=== PATIENT | female | born 1960 | race Caucasian/White ===

== ENCOUNTER 2017-08-29 14:26 | Emergency (ER) | payer OTHER ==
[~2017-08-29] VITALS: Ht 160 cm; Wt 77.3 kg
[~2017-08-29 14:26] MED LIST: CARV3.1262 PO; GLIM1TAB2 PO; LISI1TAB11 PO; METF500T6 PO; MORP30 PO; RANI-248 PO
[2017-08-29 14:49] LABS: GLUCOSE,POINT OF CARE 207 MG/DL (70-110)
[2017-08-29] MEDS ORDERED: KETOROLAC TROMETHAMINE 60 MG/2 ML VIAL IM ONE (15:30)
[2017-08-29 16:15] VITALS: BP 137/84
== END 2017-08-29 16:29 | disposition home or self-care (01) ==
LOC: EMS 14:27
DX: M19.90 Unspecified osteoarthritis, unspecified site (principal); M25.561 Pain in right knee; M25.562 Pain in left knee; M79.89 Other specified soft tissue disorders; G89.29 Other chronic pain; J45.909 Unspecified asthma, uncomplicated; E11.9 Type 2 diabetes mellitus without complications; I10 Essential (primary) hypertension; Z96.651 Presence of right artificial knee joint; Z88.1 Allergy status to other antibiotic agents
CPT/HCPCS: 73562 ×2; 82962; 96372; 99284; J1885

== ENCOUNTER 2017-10-05 17:51 | Emergency (ER) | payer OTHER ==
[~2017-10-05] VITALS: Ht 160 cm; Wt 78.2 kg
[~2017-10-05 17:51] MED LIST changes: -CARV3.1262 PO; -MORP30 PO
[2017-10-05] MEDS ORDERED: ALBU8.5H8 IH (18:06)
[2017-10-05] MEDS ORDERED: PRED15SO PO (18:06)
[2017-10-05] MEDS ORDERED: MONT10TA21 PO (18:06)
[2017-10-05 18:09] LABS: GLUCOSE,POINT OF CARE 390 MG/DL (70-110)
[2017-10-05] MEDS ORDERED: SODIUM CHLORIDE 0.9% 1,000 ML IV ONE (20:15)
[2017-10-05 20:46] LABS: ANION GAP 11 mmol/L (8-16); CALCIUM, TOTAL 9.5 mg/dL (8.8-10.5); CARBON DIOXIDE 27 mmol/L (22-29); CHLORIDE 97 mmol/L (98-107); CREATININE 0.79 mg/dL (0.60-1.30); GLOMERULAR FILTR. RATE CALC > 60 mL/min (>60); GLUCOSE,RANDOM 299 mg/dL (70-110); POTASSIUM 3.8 mmol/L (3.5-5.1); SODIUM SERUM 135 mmol/L (136-145); UREA NITROGEN, BLOOD 11 mg/dL (7-18)
[2017-10-05 21:18] LABS: GLUCOSE,POINT OF CARE 235 MG/DL (70-110)
[2017-10-05 21:37] VITALS: BP 124/71
== END 2017-10-05 22:01 | disposition home or self-care (01) ==
LOC: EMS 17:52
DX: E11.65 Type 2 diabetes mellitus with hyperglycemia (principal); J45.901 Unspecified asthma with (acute) exacerbation; T38.3X5A Adverse effect of insulin and oral hypoglycemic [antidiabetic] drugs, initial encounter; M19.90 Unspecified osteoarthritis, unspecified site; I10 Essential (primary) hypertension; Z96.659 Presence of unspecified artificial knee joint; Z88.1 Allergy status to other antibiotic agents; Z79.84 Long term (current) use of oral hypoglycemic drugs; Z79.899 Other long term (current) drug therapy; Y92.89 Other specified places as the place of occurrence of the external cause
CPT/HCPCS: 36415; 80048; 82962; 96360; 99284; J7030

== ENCOUNTER 2017-11-03 15:24 | Emergency (ER) | payer OTHER ==
[~2017-11-03] VITALS: Ht 160 cm; Wt 80.0 kg
[~2017-11-03 15:24] MED LIST changes: +ALBU8.5H8 IH; +METF-960 PO; -METF500T6 PO; +MONT10TA21 PO; +PRED15SO PO
[2017-11-03] MEDS ORDERED: KETOROLAC TROMETHAMINE 60 MG/2 ML VIAL IM ONE (17:30)
[2017-11-03 18:24] LABS: BASOPHILS % (AUTO) 0.7 % (0.0-2.0); EOSINOPHILS % (AUTO) 2.5 % (1.0-6.0); HEMATOCRIT 26.3 % (36-46); HEMOGLOBIN 8.7 g/dL (12.0-16.0); LYMPHOCYTES % (AUTO) 28.1 % (22.0-44.0); MEAN CORPUSCULAR HGB CONC 32.9 G/dL (31.0-37.0); MEAN CORPUSCULAR VOLUME 70 fL (80-100); MONOCYTES # (AUTO) 0.6 K/uL (0.1-1.0); MONOCYTES % (AUTO) 8.5 % (2.0-9.0); NEUTROPHILS # (AUTO) 4.3 K/uL (1.8-7.7); NEUTROPHILS % (AUTO) 60.2 % (40.0-70.0); PLATELET COUNT (AUTO) 279 K/uL (150-450); RED BLOOD CELL COUNT(AUTO) 3.76 MIL/uL (4.00-5.20); RED CELL DISTRIBUTION WIDTH 15.7 % (11.5-14.5)
[2017-11-03 18:26] VITALS: BP 125/75
[2017-11-03 18:37] LABS: ANION GAP 8 mmol/L (8-16); CALCIUM, TOTAL 8.4 mg/dL (8.8-10.5); CARBON DIOXIDE 29 mmol/L (22-29); CHLORIDE 104 mmol/L (98-107); CREATININE 0.59 mg/dL (0.60-1.30); GLOMERULAR FILTR. RATE CALC > 60 mL/min (>60); GLUCOSE,RANDOM 105 mg/dL (70-110); POTASSIUM 3.4 mmol/L (3.5-5.1); SODIUM SERUM 141 mmol/L (136-145); UREA NITROGEN, BLOOD 6 mg/dL (7-18)
[2017-11-03 18:42] LABS: ALANINE AMINOTRANSFERASE 24 U/L (12-78); ALBUMIN 3.4 g/dL (3.4-5.0); ALKALINE PHOSPHATASE 83 U/L (46-116); ASPARTATE AMINOTRANSFERASE 16 U/L (15-37); BILIRUBIN,TOTAL 0.3 mg/dL (0.1-1.0); TOTAL PROTEIN, SERUM 6.8 g/dL (6.4-8.2)
[2017-11-03] MEDS ORDERED: POTASSIUM CHLORIDE 20 MEQ ER TABLET PO ONE (19:15)
== END 2017-11-03 19:24 | disposition home or self-care (01) ==
LOC: EMS 15:26
DX: M25.561 Pain in right knee (principal); J45.909 Unspecified asthma, uncomplicated; E11.9 Type 2 diabetes mellitus without complications; I10 Essential (primary) hypertension; G47.00 Insomnia, unspecified; F43.10 Post-traumatic stress disorder, unspecified; Z96.651 Presence of right artificial knee joint; Z88.1 Allergy status to other antibiotic agents; Z79.84 Long term (current) use of oral hypoglycemic drugs; Z79.899 Other long term (current) drug therapy
CPT/HCPCS: 29505; 36415; 73562; 80053; 82948; 85025; 96372; 99285; J1885

== ENCOUNTER 2019-02-11 09:45 | Emergency (ER) | payer OTHER ==
[~2019-02-11] VITALS: Ht 157.5 cm; Wt 63.6 kg
[~2019-02-11 09:45] MED LIST changes: -GLIM1TAB2 PO; +GLIM1TAB3 PO; -PRED15SO PO; +PRED15SO57 PO; -RANI-248 PO; +RANI-662 PO
[2019-02-11] MEDS ORDERED: DULA0.75 SQ (09:57)
[2019-02-11 10:01] LABS: GLUCOSE,POINT OF CARE 206 MG/DL (70-110)
[2019-02-11] MEDS ORDERED: LISI-658 PO (11:55)
[2019-02-11] MEDS ORDERED: CYCLOBENZAPRINE HCL 10 MG TABLET PO ONE (12:00)
[2019-02-11] MEDS ORDERED: KETOROLAC TROMETHAMINE 30 MG/ML VIAL IM ONE (12:00)
[2019-02-11 13:04] VITALS: BP 139/89
[2019-02-11 13:19] LABS: GLUCOSE,POINT OF CARE 89 MG/DL (70-110)
== END 2019-02-11 13:39 | disposition home or self-care (01) ==
LOC: EMS 09:49
DX: S20.211A Contusion of right front wall of thorax, initial encounter (principal); S30.1XXA Contusion of abdominal wall, initial encounter; M25.551 Pain in right hip; M54.2 Cervicalgia; M79.601 Pain in right arm; E11.9 Type 2 diabetes mellitus without complications; G47.00 Insomnia, unspecified; I10 Essential (primary) hypertension; J45.909 Unspecified asthma, uncomplicated; M19.90 Unspecified osteoarthritis, unspecified site; Z96.651 Presence of right artificial knee joint; Z79.899 Other long term (current) drug therapy; Z88.1 Allergy status to other antibiotic agents; W18.39XA Other fall on same level, initial encounter; Y93.02 Activity, running; Y92.89 Other specified places as the place of occurrence of the external cause; Y99.8 Other external cause status
CPT/HCPCS: 71101; 82962; 96372; 99283; J1885

== ENCOUNTER 2019-12-08 12:13 | Emergency (ER) | payer OTHER ==
[~2019-12-08] VITALS: Ht 160 cm; Wt 77.7 kg
[~2019-12-08 12:13] MED LIST changes: +DULA0.75 SQ; -GLIM1TAB3 PO; +LISI-658 PO; -LISI1TAB11 PO; +MONT-35 PO; -MONT10TA21 PO; -PRED15SO57 PO
[2019-12-08] MEDS ORDERED: KETOROLAC TROMETHAMINE 30 MG/ML VIAL IM ONE (13:00)
[2019-12-08 15:08] VITALS: BP 130/89
== END 2019-12-08 15:22 | disposition home or self-care (01) ==
LOC: EMS 12:16
DX: S90.31XA Contusion of right foot, initial encounter (principal); I10 Essential (primary) hypertension; E11.9 Type 2 diabetes mellitus without complications; J45.909 Unspecified asthma, uncomplicated; Z88.1 Allergy status to other antibiotic agents; Z79.84 Long term (current) use of oral hypoglycemic drugs; Z79.899 Other long term (current) drug therapy; W20.8XXA Other cause of strike by thrown, projected or falling object, initial encounter; Y93.89 Activity, other specified; Y92.89 Other specified places as the place of occurrence of the external cause; Y99.8 Other external cause status
CPT/HCPCS: 73630; 96372; 99283; J1885

== ENCOUNTER 2021-03-03 19:34 | Emergency (ER) | payer OTHER ==
[~2021-03-03] VITALS: Ht 160 cm; Wt 72.3 kg
[~2021-03-03 19:34] MED LIST changes: +METF-1211 PO; -METF-960 PO
[2021-03-03 19:40] VITALS: BP 142/83
[2021-03-03] MEDS ORDERED: METF-1211 PO (19:59)
[2021-03-03] MEDS ORDERED: DULA0.75 SQ (20:00)
[2021-03-03 21:30] LABS: COVID AG,FIA SOURCE NASOPHARYNGEAL
[2021-03-03] MEDS ORDERED: ACETAMINOPHEN 500 MG TABLET PO ONE (22:00)
[2021-03-03] MEDS ORDERED: MAG HYDROX/AL HYDROX/SIMETH 30 ML SUSP UDCUP PO ONE (22:00)
[2021-03-03] MEDS ORDERED: FAMOTIDINE 10 MG/ML 2 ML VIAL IVP ONE (22:00)
[2021-03-03] MEDS ORDERED: ONDANSETRON HCL 4 MG/2 ML VIAL IVP ONE (22:00)
[2021-03-03] MEDS ORDERED: SODIUM CHLORIDE 0.9% 1,000 ML IV ONE (22:00)
[2021-03-03 22:09] LABS: INFLUENZA TYPE A NEGATIVE FOR TYPE A (NEGATIVE); INFLUENZA TYPE B NEGATIVE FOR TYPE B (NEGATIVE)
[2021-03-03 22:16] LABS: BASOPHILS % (AUTO) 0.5 % (0.0-2.0); HEMATOCRIT 35.8 % (36-46); HEMOGLOBIN 12.6 g/dL (12.0-16.0); LYMPHOCYTES % (AUTO) 19.4 % (22.0-44.0); MEAN CORPUSCULAR HEMOGLOBIN 29.1 pg (26.0-34.0); MEAN CORPUSCULAR HGB CONC 35.1 G/dL (31.0-37.0); MEAN CORPUSCULAR VOLUME 83 fL (80-100); MONOCYTES # (AUTO) 0.4 K/uL (0.1-1.0); MONOCYTES % (AUTO) 7.7 % (2.0-9.0); NEUTROPHILS # (AUTO) 3.9 K/uL (1.8-7.7); NEUTROPHILS % (AUTO) 71.4 % (40.0-70.0); PLATELET COUNT (AUTO) 310 K/uL (150-450); RED BLOOD CELL COUNT(AUTO) 4.32 MIL/uL (4.00-5.20); RED CELL DISTRIBUTION WIDTH 12.6 % (11.5-14.5)
[2021-03-03 22:22] LABS: ANION GAP 10 mmol/L (8-16); CALCIUM, TOTAL 9.5 mg/dL (8.8-10.5); CARBON DIOXIDE 29 mmol/L (22-29); CHLORIDE 96 mmol/L (98-107); CREATININE 0.91 mg/dL (0.60-1.30); GLOMERULAR FILTR. RATE CALC > 60 mL/min (>60); GLUCOSE,RANDOM 301 mg/dL (70-110); POTASSIUM 3.6 mmol/L (3.5-5.1); PROTHROMBIN TIME 10.7 SEC (9.4-11.6); SODIUM SERUM 135 mmol/L (136-145); UREA NITROGEN, BLOOD 23 mg/dL (7-18)
[2021-03-03 22:28] LABS: ALANINE AMINOTRANSFERASE 46 U/L (12-78); ALBUMIN 3.6 g/dL (3.4-5.0); ALKALINE PHOSPHATASE 107 U/L (46-116); ASPARTATE AMINOTRANSFERASE 28 U/L (15-37); BILIRUBIN,TOTAL 0.8 mg/dL (0.1-1.0); CREATINE KINASE, TOTAL ONLY 23 U/L (26-192); LIPASE 86 U/L (73-393); TOTAL PROTEIN, SERUM 8.2 g/dL (6.4-8.2)
[2021-03-03 22:47] LABS: B-TYPE NATRIURETIC PEPTIDE 15 pg/mL (0-100)
== END 2021-03-03 22:50 | disposition left against medical advice (07) ==
LOC: EMS 19:39
DX: R53.1 Weakness (principal); R50.9 Fever, unspecified; M79.10 Myalgia, unspecified site; J45.909 Unspecified asthma, uncomplicated; E11.9 Type 2 diabetes mellitus without complications; I10 Essential (primary) hypertension; Z20.822 Contact with and (suspected) exposure to COVID-19; Z79.84 Long term (current) use of oral hypoglycemic drugs; Z88.1 Allergy status to other antibiotic agents
CPT/HCPCS: 80053; 82550; 83690; 83880; 84484; 85025; 85610; 85730; 87426; 87804; 93005; 99284; U0003; 99285

== ENCOUNTER 2021-12-22 16:03 | Emergency (ER) | payer OTHER ==
[~2021-12-22] VITALS: Ht 160 cm; Wt 73.2 kg
[2021-12-22] MEDS ORDERED: XALA2.5OS OU (16:25)
[2021-12-22] MEDS ORDERED: BACL10TA PO (16:26)
[2021-12-22] MEDS ORDERED: FAMO20 PO (16:30)
[2021-12-22] MEDS ORDERED: HYDR-4061 PO (16:30)
[2021-12-22] MEDS ORDERED: FLUT16SP NASAL (16:30)
[2021-12-22] MEDS ORDERED: DULA1.5P SQ (16:30)
[2021-12-22] MEDS ORDERED: SUMA25TA9 PO (16:30)
[2021-12-22] MEDS ORDERED: BRIM15DR8 OU (16:30)
[2021-12-22] MEDS ORDERED: CITA-144 PO (16:43)
[2021-12-22] MEDS ORDERED: TOLT2TAB20 PO (16:43)
[2021-12-22] MEDS ORDERED: KETOROLAC TROMETHAMINE 30 MG/ML VIAL IM ONE (17:15)
[2021-12-22 20:15] VITALS: BP 136/85
== END 2021-12-22 20:15 | disposition home or self-care (01) ==
LOC: EMS 16:17
DX: M25.552 Pain in left hip (principal); E11.9 Type 2 diabetes mellitus without complications; F43.10 Post-traumatic stress disorder, unspecified; I10 Essential (primary) hypertension; J45.909 Unspecified asthma, uncomplicated; M79.7 Fibromyalgia; M19.90 Unspecified osteoarthritis, unspecified site; Z96.651 Presence of right artificial knee joint; Z88.6 Allergy status to analgesic agent
CPT/HCPCS: 99283; 73503; 96372; J1885

== ENCOUNTER 2022-08-17 16:54 | Emergency (ER) | payer OTHER ==
[~2022-08-17] VITALS: Ht 160 cm; Wt 72.7 kg
[~2022-08-17 16:54] MED LIST changes: +BACL10TA PO; +BRIM15DR8 OU; +CITA-144 PO; -DULA0.75 SQ; +DULA1.5P SQ; +FAMO20 PO; +FLUT16SP NASAL; +HYDR-4061 PO; -MONT-35 PO; -RANI-662 PO; +SUMA25TA9 PO; +TOLT2TAB20 PO; +XALA2.5OS OU
[2022-08-17 17:10] VITALS: TEMP 98.1
[2022-08-17] MEDS ORDERED: HYDROCODONE/ACETAMINOPHEN 5-325 MG TABLET PO ONE (18:45)
[2022-08-17] MEDS ORDERED: ESTR42.510 VG (18:49)
[2022-08-17] MEDS ORDERED: ALBU18HF12 IH (18:49)
[2022-08-17] MEDS ORDERED: TOLT4CAP27 PO (18:49)
[2022-08-17] MEDS ORDERED: MONT-40 PO (18:49)
[2022-08-17] MEDS ORDERED: TRAM-559 PO (20:26)
[2022-08-17 20:33] VITALS: BP 139/82; PULSE 88; RESP 16
== END 2022-08-17 20:37 | disposition home or self-care (01) ==
LOC: EMS 16:56
DX: S89.92XA Unspecified injury of left lower leg, initial encounter (principal); S79.912A Unspecified injury of left hip, initial encounter; S63.622A Sprain of interphalangeal joint of left thumb, initial encounter; M19.90 Unspecified osteoarthritis, unspecified site; J45.909 Unspecified asthma, uncomplicated; E11.9 Type 2 diabetes mellitus without complications; I10 Essential (primary) hypertension; M79.7 Fibromyalgia; Z96.651 Presence of right artificial knee joint; Z88.8 Allergy status to other drugs, medicaments and biological substances; W01.0XXA Fall on same level from slipping, tripping and stumbling without subsequent striking against object, initial encounter; Y93.89 Activity, other specified; Y92.89 Other specified places as the place of occurrence of the external cause; Y99.8 Other external cause status
CPT/HCPCS: 73503; 99284